=== PATIENT | female | born 1950 | race Caucasian/White ===

== ENCOUNTER 2016-11-09 23:25 | Emergency (ER) | payer OTHER ==
[2016-11-09] MEDS ORDERED: Aspirin 81 MG Tab.Chew PO ONE (23:34)
[2016-11-09] MEDS ORDERED: Nitroglycerin 0.4 MG Tab.SL SL PRN (23:34)
[2016-11-09] MEDS ORDERED: Sodium Chloride 0.9% 1,000 ML IV SCH (23:45)
[2016-11-09 23:49] VITALS: BP 199/116
--- NOTE | 2016-11-09 23:50 | EDM.PDOC ---
ED HPI GENERAL MEDICAL PROBLEM - General Chief Complaint: Chest Pain Stated Complaint: CHEST PAIN Time Seen by Provider: 11/09/16 23:30 - History of Present Illness INITIAL COMMENTS - FREE TEXT/NARRATIVE: 66-year-old female presents emergency room with chest pain. This pain is been going on a little over an hour. This chest pain started while the patient was watching TV. The patient has had problems with her heart in the past. The patient has paroxysmal atrial fibrillation she is taking a look list Metroprolol and diltiazem. The patient is never had heart sensations like this. The patient has had no palpitations this evening. The patient describes a squeezing tightness behind her left breast this does not radiate to her arm or into her neck or elsewhere. The patient does not smoke she is treated for hypertension. She does not use illicit drugs. Family history is unremarkable for coronary artery disease. 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 The patient does not recall having a stress test during her evaluation for atrial fibrillation. Right Lower Chest Pain Score (Numeric/FACES): 4 - Related Data Allergies Allergy/AdvReac Type Severity Reaction Status Date / Time bupropion [From Wellbutrin] Allergy Headache Verified 11/09/16 23:46 duloxetine [From Cymbalta] Allergy Abdominal Verified 11/09/16 23:46 Pain estradiol [From Vagifem] Allergy Other Verified 11/10/16 00:27 feathers Allergy Headache Verified 11/09/16 23:46 guaifenesin [From Entex LA] Allergy Itching Verified 11/09/16 23:46 ketorolac Allergy Headache Verified 11/09/16 23:46 latex Allergy Cannot Verified 11/09/16 23:43 Remember lisinopril Allergy Cough Verified 11/09/16 23:46 lorazepam Allergy Depression Verified 11/09/16 23:46 mushroom Allergy Headache Verified 11/09/16 23:46 nefazodone [From Serzone] Allergy Other Verified 11/09/16 23:46 phenylephrine [From Entex LA] Allergy Itching Verified 11/09/16 23:46 phenylpropanolamine Allergy Itching Verified 11/09/16 23:46 [From Entex LA] polymyxin B Allergy Burning Verified 11/10/16 00:27 potassium chloride Allergy Headache Verified 11/09/16 23:43 pseudoephedrine Allergy Itching Verified 11/09/16 23:46 IV Contrast Allergy Itching Uncoded 11/10/16 00:27 Home Meds: Home Meds Acyclovir [Zovirax 5% Crm] 1 dose TOP ASDIRECTED PRN 11/10/16 [History] Apixaban [Eliquis] 5 mg PO DAILY 11/10/16 [History] Diltiazem HCl [Dilt-XR] 120 mg PO BEDTIME 11/10/16 [History] Lidocaine 4% [LMX 4 Cream with Tegaderm] 1 dose TOP ASDIRECTED PRN 11/10/16 [ History] Metoprolol Succinate 100 mg PO DAILY 11/10/16 [History] Multivit-Min/FA/Lycopene/Lut [Centrum Silver Tablet] 1 tab PO DAILY 11/10/16 [ History] Triamcinolone Acetonide 1 dose TOP ASDIRECTED PRN 11/10/16 [History] Turmeric/Turmeric Root Extract [Turmeric 500 mg Capsule] 500 mg PO BID 11/10/16 [History] ED ROS GENERAL - Review of Systems Review Of Systems: See Below Constitutional: Reports: No Symptoms HEENT: Reports: No Symptoms Respiratory: Reports: No Symptoms Cardiovascular: Reports: Chest Pain GI/Abdominal: Reports: No Symptoms : Reports: No Symptoms Neurological: Reports: No Symptoms ED EXAM, GENERAL - Physical Exam Exam: See Below Exam Limited By: No Limitations General Appearance: Alert, Mild Distress (Patient is a little anxious and concerned about her chest discomfort) Head: Atraumatic, Normocephalic Neck: Normal Inspection, Supple, Non-Tender, Full Range of Motion Respiratory/Chest: No Respiratory Distress, Lungs Clear, Normal Breath Sounds Cardiovascular: Regular Rate, Rhythm, No Murmur, Other (Trace pitting edema according to the patient she says this is normal) GI/Abdominal: Normal Bowel Sounds, Soft, Non-Tender Back Exam: Normal Inspection. No: CVA Tenderness (L), CVA Tenderness (R) Extremities: Normal Inspection, Other (Trace pitting edema bilaterally this is normal for her. The patient) Neurological: Alert, Oriented, Normal Cognition EKG INTERPRETATION EKG Date: 11/10/16 Rhythm: NSR [place]: Normal P-Wave: Present QRS: Other (Normal other than low voltage) ST-T: Other (Nonspecific nondiagnostic changes) QT: Normal Comparison: NA - No Prior EKG EKG Interpretation Comments: Borderline EKG Course - Vital Signs Last Recorded V/S: Last Vital Signs Temp 36.0 C 11/09/16 23:39 Pulse 74 11/09/16 23:39 Resp 16 11/09/16 23:39 BP 199/116 H 11/09/16 23:48 Pulse Ox 97 11/09/16 23:39 - Orders/Labs/Meds Orders: Active Orders 24 hr Category Date Time Status EKG Documentation Completion [RC] STAT Care 11/09/16 23:35 Active Chest 1V Frontal [CR] Stat Exams 11/09/16 23:35 Taken Nitroglycerin [Nitrostat] Med 11/09/16 23:34 Active 0.4 mg SL Q5M PRN Sodium Chloride 0.9% [Normal Saline] 1,000 ml Med 11/09/16 23:45 Active IV ASDIRECTED Medication Orders Sodium Chloride (Normal Saline) 1,000 mls @ 50 mls/hr IV ASDIRECTED VANI Last Admin: 11/10/16 00:07 Dose: 50 mls/hr Nitroglycerin (Nitrostat) 0.4 mg SL Q5M PRN PRN Reason: Chest Pain Last Admin: 11/09/16 23:48 Dose: 0.4 mg Labs: Laboratory Tests 11/09/16 11/09/16 11/09/16 Range/Units 23:35 23:35 23:35 WBC 19.13 H (3.98-10.04) K/mm3 RBC 4.64 (3.98-5.22) M/mm3 Hgb 13.8 (11.2-15.7) gm/L Hct 42.1 (34.1-44.9) % MCV 90.7 (79.4-94.8) fl MCH 29.7 (25.6-32.2) pg MCHC 32.8 (32.2-35.5) g/dl RDW Std Deviation 47.8 H (36.4-46.3) fL Plt Count 595 H (182-369) K/mm3 MPV 10.6 (9.4-12.3) fl Neutrophils % (Manual) 48 (40-60) % Band Neutrophils % 0 (0-10) % Lymphocytes % (Manual) 47 H (20-40) % Atypical Lymphs % 0 % Monocytes % (Manual) 3 (2-10) % Eosinophils % (Manual) 1 (0.7-5.8) % Basophils % (Manual) 1 (0.1-1.2) Platelet Estimate Increased Plt Morphology Comment Normal Hypochromasia 1+ slight Anisocytosis 1+ slight RBC Morph Comment Not Reportable PT 10.0 (8.0-13.0) SECONDS INR 0.92 APTT 29 (22-36) SECONDS Sodium 140 (136-145) mEq/L Potassium 4.0 (3.5-5.1) mEq/L Chloride 104 (98-107) mEq/L Carbon Dioxide 28 (21-32) mEq/L Anion Gap 12.0 (5-15) BUN 27 H (7-18) mg/dL Creatinine 1.4 H (0.55-1.02) mg/dL Est Cr Clr Drug Dosing 33.14 mL/min Estimated GFR (MDRD) 38 (>60) mL/min BUN/Creatinine Ratio 19.3 H (14-18) Glucose 103 (80-115) mg/dL Calcium 9.7 (8.5-10.1) mg/dL Total Bilirubin 0.2 (0.2-1.0) mg/dL AST 19 (15-37) U/L ALT 24 (14-59) U/L Alkaline Phosphatase 124 H (46-116) U/L Troponin I < 0.017 (0.00-0.056) ng/mL Total Protein 7.8 (6.4-8.2) g/dl Albumin 3.8 (3.4-5.0) g/dl Globulin 4.0 gm/dL Albumin/Globulin Ratio 1.0 (1-2) 11/10/ Range/Units 02:19 WBC (3.98-10.04) K/mm3 RBC (3.98-5.22) M/mm3 Hgb (11.2-15.7) gm/L Hct (34.1-44.9) % MCV (79.4-94.8) fl MCH (25.6-32.2) pg MCHC (32.2-35.5) g/dl RDW Std Deviation (36.4-46.3) fL Plt Count (182-369) K/mm3 MPV (9.4-12.3) fl Neutrophils % (Manual) (40-60) % Band Neutrophils % (0-10) % Lymphocytes % (Manual) (20-40) % Atypical Lymphs % % Monocytes % (Manual) (2-10) % Eosinophils % (Manual) (0.7-5.8) % Basophils % (Manual) (0.1-1.2) Platelet Estimate Plt Morphology Comment Hypochromasia Anisocytosis RBC Morph Comment PT (8.0-13.0) SECONDS INR APTT (22-36) SECONDS Sodium (136-145) mEq/L Potassium (3.5-5.1) mEq/L Chloride (98-107) mEq/L Carbon Dioxide (21-32) mEq/L Anion Gap (5-15) BUN (7-18) mg/dL Creatinine (0.55-1.02) mg/dL Est Cr Clr Drug Dosing mL/min Estimated GFR (MDRD) (>60) mL/min BUN/Creatinine Ratio (14-18) Glucose (80-115) mg/dL Calcium (8.5-10.1) mg/dL Total Bilirubin (0.2-1.0) mg/dL AST (15-37) U/L ALT (14-59) U/L Alkaline Phosphatase (46-116) U/L Troponin I < 0.017 (0.00-0.056) ng/mL Total Protein (6.4-8.2) g/dl Albumin (3.4-5.0) g/dl Globulin gm/dL Albumin/Globulin Ratio (1-2) Meds: Medications Generic Name Dose Route Start Last Admin Trade Name Freq PRN Reason Stop Dose Admin Sodium Chloride 1,000 mls @ 50 mls/hr 11/09/16 23:45 11/10/16 00:07 Normal Saline IV 50 mls/hr ASDIRECTED VANI Administration Nitroglycerin 0.4 mg 11/09/16 23:34 11/09/16 23:48 Nitrostat SL 0.4 mg Q5M PRN Administration Chest Pain Discontinued Medications Generic Name Dose Route Start Last Admin Trade Name Freq PRN Reason Stop Dose Admin Aspirin 324 mg 11/09/16 23:34 11/09/16 23:51 Aspirin PO 11/09/16 23:35 Not Given ONETIME ONE Morphine Sulfate 2 mg 11/09/16 23:58 11/10/16 00:04 Morphine IVPUSH 11/09/16 23:59 2 mg ONETIME ONE Administration Nitroglycerin 0.5 gm 11/10/16 00:11 11/10/16 00:23 Nitro-Bid 2% TOP 11/10/16 00:12 Not Given ONETIME ONE - Re-Assessments/Exams Free Text/Narrative Re-Assessment/Exam: 11/10/16 03:17 Patient did not tolerate sublingual nitroglycerin she declined aspirin because she's been told of her glomerular nephritis in the past not to use aspirin. Patient tolerated nitro paste and she was given 2 mg of morphine early on 2 and half hours after presentation she had a follow-up troponin obtained and this was negative. Patient's heart score was 4. 1 point for being moderately suspicious 2 points because of her age and 1 point for risk factors. Admission was offered the patient really wants to go home. She agrees to follow-up for a Persantine stress test Departure - Departure Time of Disposition: 03:21 Disposition: Home, Self-Care 01 Clinical Impression: Chest pain Referrals: PCP,Not In Area [Primary Care Provider] - Forms: ED Department Discharge Additional Instructions: Return to the emergency room with any questions problems worsening symptoms. Follow-up with the stress test as scheduled. [facility] [place] either today or tomorrow and after your stress test is done. - My Orders Last 24 Hours: My Active Orders 11/09/16 23:34 Nitroglycerin [Nitrostat] 0.4 mg SL Q5M PRN 11/09/16 23:35 EKG Documentation Completion [RC] STAT Chest 1V Frontal [CR] Stat 11/09/16 23:45 Sodium Chloride 0.9% [Normal Saline] 1,000 ml IV ASDIRECTED - Assessment/Plan Last 24 Hours: My Active Orders 11/09/16 23:34 Nitroglycerin [Nitrostat] 0.4 mg SL Q5M PRN 11/09/16 23:35 EKG Documentation Completion [RC] STAT Chest 1V Frontal [CR] Stat 11/09/16 23:45 Sodium Chloride 0.9% [Normal Saline] 1,000 ml IV ASDIRECTED
[2016-11-09] MEDS ORDERED: Morphine 2 MG/ML Syringe IVPUSH ONE (23:58)
[2016-11-10] MEDS ORDERED: Nitroglycerin 2% Oint 1 GM UD Packet TOP ONE (00:11)
--- NOTE | 2016-11-10 09:42 | CR ---
Chest: Portable view of the chest was obtained. Comparison: No previous study. Heart size is normal. Tortuous thoracic aorta is seen. Lungs are clear. Bony structures are grossly intact. Impression: 1. Nothing acute is appreciated on portable chest x-ray. Diagnostic code #1
== END 2016-11-10 03:30 | disposition home or self-care (01) ==
LOC: JD.ED 23:25 → MERGE 23:25 → JD.ED 11-10 03:30
DX: R07.9 Chest pain, unspecified (principal); I48.91 Unspecified atrial fibrillation; Z88.8 Allergy status to other drugs, medicaments and biological substances; Z91.040 Latex allergy status; Z88.6 Allergy status to analgesic agent; Z91.041 Radiographic dye allergy status; Z79.899 Other long term (current) drug therapy
CPT/HCPCS: 36415; 71010; 80053; 84484; 85025; 85610; 85730; 93005; 96361; 96374; 99285; A9270; J2270; J7040

== ENCOUNTER 2021-12-30 11:31 | Emergency (ER) | payer OTHER ==
[2021-12-30 12:21] VITALS: BP 107/61; PULSE 128
[2021-12-30] MEDS ORDERED: Sodium Chloride 0.9% 10 ML Syringe FLUSH PRN (12:39)
[2021-12-30] MEDS ORDERED: Sodium Chloride 0.9% 1,000 ML IV SCH (12:45)
== END 2021-12-30 16:10 | disposition home or self-care (01) ==
LOC: JD.ED 11:31
DX: U07.1 COVID-19 (principal); I48.91 Unspecified atrial fibrillation; I12.9 Hypertensive chronic kidney disease with stage 1 through stage 4 chronic kidney disease, or unspecified chronic kidney disease; N18.9 Chronic kidney disease, unspecified; E66.9 Obesity, unspecified; Z68.41 Body mass index [BMI] 40.0-44.9, adult; Z79.899 Other long term (current) drug therapy; Z87.891 Personal history of nicotine dependence; Z91.041 Radiographic dye allergy status; Z88.8 Allergy status to other drugs, medicaments and biological substances; Z91.040 Latex allergy status; Z91.048 Other nonmedicinal substance allergy status
CPT/HCPCS: 36415; 71045; 80053; 84484; 85025; 86140; 93005; 96360; 99284; J7030

== ENCOUNTER 2022-06-15 08:32 | Emergency (ER) | payer OTHER ==
[2022-06-15] MEDS ORDERED: Sodium Chloride 0.9% 10 ML Syringe FLUSH PRN (08:53)
[2022-06-15] MEDS ORDERED: Metoprolol Tartrate 50 MG Tab PO ONE (08:53)
[2022-06-15 11:17] VITALS: BP 118/79; PULSE 69
== END 2022-06-15 11:11 | disposition home or self-care (01) ==
LOC: JD.ED 08:32
DX: I48.91 Unspecified atrial fibrillation (principal); I10 Essential (primary) hypertension; M19.90 Unspecified osteoarthritis, unspecified site; E66.9 Obesity, unspecified; Z87.891 Personal history of nicotine dependence; Z79.01 Long term (current) use of anticoagulants; Z91.018 Allergy to other foods; Z88.8 Allergy status to other drugs, medicaments and biological substances; Z86.16 Personal history of COVID-19; Z68.41 Body mass index [BMI] 40.0-44.9, adult
CPT/HCPCS: 36415; 80053; 84443; 84484; 85025; 93005; 99285; A9270; J3490; 93010; 99283

== ENCOUNTER 2022-08-06 10:10 | Emergency (ER) | payer OTHER ==
[2022-08-06] MEDS ORDERED: Sodium Chloride 0.9% 10 ML Syringe FLUSH PRN (10:31)
[2022-08-06] MEDS ORDERED: Diltiazem 25 MG/5 ML SDV IVPUSH ONE (10:32)
[2022-08-06 10:38] LABS: BASOPHILS ABSOLUTE AUTO 0.13 K/mm3 (0.01-0.08); BASOPHILS PERCENT AUTO 0.9 % (0.1-1.2); EOSINOPHILS ABSOLUTE AUTO 0.42 K/mm3 (0.04-0.36); EOSINOPHILS PERCENT AUTO 2.9 (0.7-5.8); HEMOGLOBIN 14.2 gm/dl (11.2-15.7); IMMATURE GRAN ABSOLUTE AUTO 0.03 K/mm3 (0.00-0.10); IMMATURE GRAN PERCENT AUTO 0.2 % (<=1.0); LYMPHOCYTES ABSOLUTE AUTO 5.11 K/mm3 (1.18-3.74); LYMPHOCYTES PERCENT AUTO 35.3 % (19.3-51.7); MEAN CORPUSCULAR HGB CONC 32.3 g/dl (32.2-35.5); MEAN CORPUSCULAR VOLUME 89.8 fl (79.4-94.8); MEAN PLATELET VOLUME 9.7 fl (9.4-12.3); MONOCYTES ABSOLUTE AUTO 2.24 K/mm3 (0.24-0.36); MONOCYTES PERCENT AUTO 15.5 % (4.7-12.5); NEUTROPHILS ABSOLUTE AUTO 6.54 K/mm3 (1.56-6.13); NEUTROPHILS PERCENT AUTO 45.2 % (34.0-71.1); PLATELET COUNT,PLT 656 K/mm3 (182-369); WHITE BLOOD CELL COUNT,WBC 14.47 K/mm3 (3.98-10.04)
[2022-08-06] MEDS ORDERED: Sodium Chloride 0.9% 1,000 ML IV SCH (10:45)
[2022-08-06] MEDS ORDERED: Diltiazem 125 MG in Sodium Chloride 0.9% 100 ML IV SCH (10:45)
[2022-08-06 11:06] LABS: A/G RATIO 0.9 (1-2); ALBUMIN 3.7 g/dl (3.4-5.0); ANION GAP 13.7 (5-15); BILIRUBIN TOTAL 0.6 mg/dL (0.2-1.0); BUN/CREATININE RATIO 18.9 (14-18); CALCIUM 9.4 mg/dL (8.5-10.1); CREATININE 1.8 mg/dL (0.55-1.02); EST CRCL DRUG DOSING (CG) 23.71 mL/min; MAGNESIUM 2.2 mg/dL (1.8-2.4); POTASSIUM,K 4.7 mEq/L (3.5-5.1); PROTEIN TOTAL,TP 7.9 g/dl (6.4-8.2); TSH 4.28 uIU/mL (0.358-3.74)
[2022-08-06 11:30] LABS: SLIDE REVIEW ABNORMAL SMEAR
[2022-08-06 13:03] VITALS: BP 112/77; PULSE 80
== END 2022-08-06 13:04 | disposition home or self-care (01) ==
LOC: JD.ED 10:10
DX: I48.91 Unspecified atrial fibrillation (principal); I12.9 Hypertensive chronic kidney disease with stage 1 through stage 4 chronic kidney disease, or unspecified chronic kidney disease; N18.9 Chronic kidney disease, unspecified; J45.909 Unspecified asthma, uncomplicated; E66.9 Obesity, unspecified; Z68.41 Body mass index [BMI] 40.0-44.9, adult; Z86.16 Personal history of COVID-19; Z79.01 Long term (current) use of anticoagulants; Z79.899 Other long term (current) drug therapy; Z88.8 Allergy status to other drugs, medicaments and biological substances; Z91.018 Allergy to other foods; Z91.040 Latex allergy status; Z91.041 Radiographic dye allergy status
CPT/HCPCS: 36415; 71045; 80053; 83735; 84443; 84484; 85025; 93005; J3490; 93010; 96374; 99283; 99285-25

== ENCOUNTER 2024-06-24 22:24 | Emergency (ER) | payer OTHER ==
[2024-06-24] MEDS ORDERED: Sodium Chloride 0.9% 10 ML Syringe FLUSH PRN (22:48)
[2024-06-24 22:58] LABS: BASOPHILS ABSOLUTE AUTO 0.2 K/mm3 (0.0-0.2); BASOPHILS PERCENT AUTO 0.9 % (0.0-1.0); EOSINOPHILS ABSOLUTE AUTO 0.4 K/mm3 (0.0-0.4); HEMATOCRIT 36.9 % (37.0-47.0); IMMATURE GRAN ABSOLUTE AUTO 0.09 K/mm3 (0.00-0.05); IMMATURE GRAN PERCENT AUTO 0.5 % (0.0-0.4); LYMPHOCYTES ABSOLUTE AUTO 6.3 K/mm3 (1.0-4.8); LYMPHOCYTES PERCENT AUTO 32.9 % (24.0-44.0); MEAN CORPUSCULAR HEMOGLOBIN 30.2 pg (28.0-32.0); MEAN CORPUSCULAR HGB CONC 32.5 g/dl (32.0-36.0); MEAN CORPUSCULAR VOLUME 92.7 fl (83.0-99.0); MEAN PLATELET VOLUME 9.8 fl (9.4-12.3); MONOCYTES PERCENT AUTO 10.6 % (0.0-8.0); NEUTROPHILS ABSOLUTE AUTO 10.2 K/mm3 (1.8-7.7); NEUTROPHILS PERCENT AUTO 53.1 % (41.0-71.0); PLATELET COUNT,PLT 553 K/mm3 (150-400); RED BLOOD CELL COUNT 3.98 M/mm3 (4.10-5.30); WHITE BLOOD CELL COUNT,WBC 19.14 K/mm3 (3.9-11.3)
[2024-06-24 23:18] LABS: A/G RATIO 0.9 (1-2); ALBUMIN 3.2 g/dl (3.4-5.0); ANION GAP 14.4 (5-15); BILIRUBIN TOTAL 0.2 mg/dL (0.2-1.0); BUN/CREATININE RATIO 15.3 (14-18); CALCIUM 8.8 mg/dL (8.5-10.1); CREATININE 1.5 mg/dL (0.55-1.02); MAGNESIUM 1.6 mg/dL (1.8-2.4); PROTEIN TOTAL,TP 6.9 g/dl (6.4-8.2)
[2024-06-24 23:28] LABS: EST CRCL DRUG DOSING (CG) 26.42 mL/min; POTASSIUM,K 4.4 mEq/L (3.5-5.1)
[2024-06-24 23:37] LABS: SLIDE REVIEW ABNORMAL SMEAR
[2024-06-24] MEDS: Labetalol 100 MG/20 ML MDV IVPUSH ONE (23:43)
[2024-06-24 23:54] LABS: APPEARANCE,URINE CLEAR (Clear); BILIRUBIN,URINE NEGATIVE (Negative); COLOR,URINE LIGHT YELLOW (Yellow); GLUCOSE,URINE NEGATIVE (Negative); KETONES,URINE NEGATIVE (Negative); LEUKOCYTE ESTERASE,URINE NEGATIVE (Negative); NITRITE,URINE NEGATIVE (Negative); OCCULT BLOOD,URINE NEGATIVE (Negative); PROTEIN,URINE 2+ (Negative); UROBILINOGEN,URINE 0.2 (0.2-1.0)
[2024-06-25 00:02] LABS: BACTERIA,URINE FEW /hpf (FEW); EPITHELIAL CELLS,URINE 0-5 /hpf (0-5); MUCUS,URINE NOT SEEN /hpf (FEW); RBC,URINE 0-5 /hpf (0-5); WBC,URINE 0-5 /hpf (0-5)
[2024-06-25] MEDS: Magnesium Sulfat/D5W 1GM/100ML 1 GM in Premix Bag 1 BAG IV ONE (00:20)
[2024-06-25 01:35] VITALS: BP 154/75; PULSE 78
== END 2024-06-25 01:35 | disposition home or self-care (01) ==
LOC: JD.ED 22:24
DX: I16.0 Hypertensive urgency (principal); I12.9 Hypertensive chronic kidney disease with stage 1 through stage 4 chronic kidney disease, or unspecified chronic kidney disease; N18.9 Chronic kidney disease, unspecified; I48.91 Unspecified atrial fibrillation; Z88.8 Allergy status to other drugs, medicaments and biological substances; Z91.040 Latex allergy status; Z91.041 Radiographic dye allergy status; Z79.01 Long term (current) use of anticoagulants; Z86.16 Personal history of COVID-19
CPT/HCPCS: 36415; 71045; 80053; 81001; 83735; 84443; 84484; 85025; 93005; 96365; 96375; 99284; J1920; J3475; 93010